=== PATIENT | male | born 1960 | race Caucasian/White ===

== ENCOUNTER 2018-05-20 23:12 | Emergency (ER) | payer SELFPAY ==
[2018-05-20 23:18] VITALS: BP 162/113; PULSE 78; RESP 20; TEMP 36.4; O2SAT 100; BMI 21.7
--- NOTE | 2018-05-21 01:26 | ED.EYEPROB ---
HPI - Eye Problem General Chief complaint: Eye Problems Stated complaint: has something in left eye History of Present Illness HPI Narrative: HPI 57-year-old male presents for evaluation of gritty left eye pain that began shortly after some sandblasting dust was actually knocked into his eye. Patient was moving equipment on a fishing boat that had sandblasting dust on it. Patient does not wear contact lenses. Patient extensively irrigators I after his injury. Denies a history of glaucoma. Denies recent eye surgery. 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 M/S/F/SocHx notable for: please see HPI; remainder reviewed with patient and in chart. ROS: Negative constitutional, eye, cardiovascular, pulmonary, GI, , MSK, skin, neurologic, psychiatric, endocrine unless noted in the HPI. Exam Gen: Pleasant, non-toxic appearing, resting in mild discomfort. Head: Normocephalic, atraumatic. Eyes: Extraocular Structures: * OS without proptosis, periorbital erythema, swelling, warmth, or tenderness. Lids without edema, erythema, swelling. Nasolacrimal duct without swelling. EOMI without pain or nystagmus. * OD without proptosis, periorbital erythema, swelling, warmth, or tenderness. Lids without edema, erythema, swelling. Nasolacrimal duct without swelling. Visual yu full to confrontation. EOMI without pain or nystagmus. Ocular Structures: OD - Visually normal. Visual acuity baseline per patient. OS * PERRLA (4 to 2 mm bilaterally) without pain on both afferent and efferent light stimulation. * EOMI without pain or nystagmus (bilaterally). * Vision: baseline per patient, yu full. * Slit lamp exam: grit visually consistent with sandblasting dust on the lateral lower eyelid margin, this washed off with proparacaine application, lid everted and no foreign bodies or areas of swelling were seen. * Mild conjunctival injection, no hemorrhage, chemosis, or discharge. No grossly visible hypopyon or hyphema. No anterior chamber cell or flare. * Patient had relief of pain with application of topical anesthetic. Fluorescein was applied with scattered minor focal update appreciated, negative Siedel's sign. * OS 11 mmHg. * pH 7 Mouth: oropharynx visually normal Nose: Nares without crusting or discharge. Neck: Neck supple Resp: Normal work of breathing without accessory muscle usage. Card: Extremities warm and well perfused. GI: Nondistended. : Deferred MSK: No visible deformities, strength and tone visually normal. Skin: Normal color with no visible lesions. Neuro: No facial asymmetry, moving all extremities without visible deficit. Heme: Deferred MDM Previous chart, nursing note, and vitals reviewed. A: 57-year-old male presents for evaluation of gritty left eye pain that began shortly after some sandblasting dust was actually knocked into his eye. DDx: corneal abrasion, corneal foreign body, keratitis sicca, corneal ulcer, corneal perforation, traumatic iritis, chemical irritation Evaluation: Exam is consistent with the history demonstrated a corneal abrasion, no foreign bodies or globe rupture were appreciated. As the patient does not wear contact lenses erythromycin ointment was prescribed, the patient was instructed to use ibuprofen for baseline analgesia with a short course of Novi for breakthrough pain prescribed. Patient was instructed to follow-up within 48 hours unless symptoms are completely resolved. Return to care precautions were provided. Impression: corneal abrasion (please reference below for remainder of encounter information) Related Data Home Medications Medication Instructions Recorded Confirmed MULTIVITAMIN (#UNI-STRESS) 1 cap PO QDAY #0 04/18/12 Previous Rx's Medication Instructions Recorded penicillin V potassium 500 mg PO QID #28 tab 11/22/16 erythromycin 1 applictn EYE-LEFT QID 5 Days 05/21/18 applictn Allergies Allergy/AdvReac Type Severity Reaction Status Date / Time AMPICILLIN Allergy Unknown GOT SICKER Uncoded 02/26/18 12:02 AND CRAZY ON IT [facility] Social History Smoking Status: Current every day smoker Exam Initial Vital Signs Initial Vital Signs: Vital Signs Temperature 97.5 F L 05/20/18 23:18 Pulse Rate 78 05/20/18 23:18 Respiratory Rate 20 05/20/18 23:18 Blood Pressure 162/113 H 05/20/18 23:18 Pulse Oximetry 100 05/20/18 23:18 Course Vital Signs - 8 hr 05/20/18 23:18 Temperature 97.5 F L Pulse Rate 78 Respiratory Rate 20 Blood Pressure 162/113 H Pulse Oximetry 100 Discharge Plan Departure Patient Disposition: Home, Self-Care Clinical Impression: Acute left eye pain Activity Restrictions/Additional Instructions: You were in seen in the [facility] Emergency Department for evaluation of eye pain. Please read and follow all of the instructions below. Please follow up with your eye doctor or primary care physician in 1-2 days for repeat evaluation. If you have any new symptoms or if you are at all concerned about your health please return immediately to the emergency department. If you do not have a primary care physician, please contact [facility], [place], [facility] at [phone], [facility] at [phone], or [facility] at [phone] to arrange follow up care. If you have health insurance, please also contact your insurer for a list of accepting providers under your policy, you may contact these providers for further health care. Your care today was limited to identifying and treating emergent medical problems only. Many people have subtle differences in their test results that require follow up with their outpatient physician(s) to correctly determine if this represents a normal variation or concerning abnormality with respect to your specific health. The care given to you today was limited to identifying and treating emergent medical problems - you need to request a copy of all of your medical records from today's visit and follow up with your outpatient physician(s) to review both today's visit and your overall health. Cornea Abrasion * A corneal abrasion is a scratch on the cornea. The cornea is the white of the eye. A corneal abrasion happens when something scratches your eye or gets stuck under your eyelid. You can also get a corneal abrasion from wearing contact lenses. * You have been prescribed erythromycin ointment, please apply 1 cm ribbon of ointment in your affected eye four times per day for the next 5 days. Your optometrist president/practice owner or information and referral director may direct you to take this for longer. * You may use artificial tears as needed for eye lubrication and comfort. However please avoid using artificial tears immediately after applying antibiotic drops or ointment to avoid washing out the antibiotic. * Follow-up with your information and referral director or optometrist president/practice owner within 24 days for a repeat evaluation. * If you wear contact lenses, please stop wearing these until your pain is all gone. After your pain is gone, please follow up with the information and referral director that prescribed the lenses to make sure they fit well. In the future, do not wear contacts that don?t fit well, wear contacts longer than you should (such as overnight), and please keep your contacts cleaned as instructed by your information and referral director or optometrist president/practice owner. Corneal abrasions can be very painful. This pain can be difficult to control but it will get better as the abrasion heals. * Take 400 mg of ibuprofen every 6 hours for pain relief. Do not take this medication if you are or allergic to ibuprofen, Motrin, Aleve, or naproxen. Return to the emergency department or promptly contact an optometrist president/practice owner if you develop any of the following: * Worsening eye pain * Headache * Eye discharge * Changes in vision * Neck stiffness, fevers, chills * Double vision * If you are otherwise concerned about your health Common symptoms of a corneal abrasion are: * Feeling like you have a speck of sand in your eye * Eye pain that is so bad you cannot work, drive, or sleep * Teary, watery eyes * Blurred vision * Being very uncomfortable looking at bright lights Erythromycin Eyedrops (Brand Names: Ilotycin; Romycin) * Please take this medication as prescribed. * Please take the medication for the full duration of the precription. * If you feel you are experiencing a side effect, please call your physician or the emergency department. Applying Erythromycin Eye Ointment: * Wash your hands well with soap and water. * Tilt your head back slightly and look upwards. * Gently drawn down the lower eye lid of your affected eye with your index finger. * Apply a thin 1 cm (approximately 1/2 inch) line of ointment in the gutter formed between your eye in your lower eyelid. * Close your eye gently and with your eye closed look in all directions to spread the ointment, you may then blink several times to help spread the ointment over your eye. * Your vision may be blurred temporarily by the ointment, this will clear up a short amount of time but do not drive a car or operate machinery until your vision has cleared. Erythromycin Side Effects: WARNING/CAUTION: Even though it may be rare, some people may have very bad and sometimes deadly side effects when taking a drug. Tell your doctor or get medical help right away if you have any of the following signs or symptoms that may be related to a very bad side effect: signs of an allergic reaction, like rash; hives; itching; red, swollen, blistered, or peeling skin with or without fever; wheezing; tightness in the chest or throat; trouble breathing or talking; unusual hoarseness; or swelling of the mouth, face, lips, tongue, or throat. Change in eyesight, eye pain, or very bad eye irritation. Ibuprofen (Brand Names: Motrin, Advil) * Take 600 mg with a glass of water every 6-8 hours as needed for pain or fever. * Do not take for more than 10 days. * This medication may cause a mildly upset stomach, if so take it with a small snack. Stop taking it if you have persistent abdominal pain, heartburn, or any stomach pain. Do not take this medication if you have known ulcers. * Do not take with Naproxen Sodium (brand name: Aleve) or other non-steroidal antiiflammatory medications that you may be prescribed (e.g. Diclofenac, Etodolac, Indomethicin) WARNING: This drug may infrequently cause serious (rarely fatal) bleeding from the stomach or intestines. Also, related drugs rarely have caused blood clots to form, resulting in heart attacks and strokes. This medication might also rarely cause similar problems. Talk to your doctor or pharmacist about the benefits and risks of treatment, as well as other possible medication choices. If you notice any of the following rare but very serious side effects, stop taking ibuprofen and seek immediate medical attention: black stools, persistent stomach/abdominal pain, vomit that looks like coffee grounds, chest pain, weakness on one side of the body, sudden vision changes, slurred speech. SIDE EFFECTS: Upset stomach, nausea, vomiting, heartburn, headache, diarrhea, constipation, drowsiness, and dizziness may occur. If any of these effects persist or worsen, notify your doctor or pharmacist promptly. If your doctor has directed you to use this medication, remember that he or she has judged that the benefit to you is greater than the risk of side effects. Many people using this medication do not have serious side effects. Tell your doctor immediately if any of these serious side effects occur: stomach pain, swelling of the hands or feet, sudden or unexplained weight gain, ringing in the ears (tinnitus). Tell your doctor immediately if any of these unlikely but serious side effects occur: vision changes, rapid or pounding heartbeat, easy bruising or bleeding, difficult/painful swallowing. Tell your doctor immediately if any of these highly unlikely but very serious side effects occur: change in amount of urine, severe headache, very stiff neck, mental/mood changes, persistent sore throat or fever. This drug may rarely cause serious (possibly fatal) liver disease. If you notice any of the following highly unlikely but very serious side effects, stop taking ibuprofen and consult your doctor or pharmacist immediately: yellowing eyes and skin, dark urine, unusual/extreme tiredness. An allergic reaction to this drug is unlikely, but seek immediate medical attention if it occurs. Symptoms of an allergic reaction include: rash, itching/swelling (especially of the face/tongue/throat), severe dizziness, trouble breathing. This is not a complete list of possible side effects. DRUG INTERACTIONS: Your healthcare professionals (e.g., doctor or pharmacist) may already be aware of any possible drug interactions and may be monitoring you for it. Do not start, stop or change the dosage of any medicine before checking with them first. This drug should not be used with the following medications because very serious interactions may occur: cidofovir, ketorolac. If you are currently using any of these medications listed above, tell your doctor or pharmacist before starting ibuprofen. Before using this medication, tell your doctor or pharmacist of all prescription and nonprescription/herbal products you may use, especially of: anti-platelet drugs (e.g., cilostazol, clopidogrel), oral bisphosphonates (e.g., alendronate), other medications for arthritis (e.g., aspirin, methotrexate), blood thinners (e.g., enoxaparin, heparin, warfarin), corticosteroids (e.g., prednisone), cyclosporine, desmopressin, high blood pressure drugs (including MARIA DOLORES inhibitors such as captopril, angiotensin II receptor antagonists such as losartan, and beta-blockers such as metoprolol), lithium, pemetrexed, water pills (diuretics such as furosemide, hydrochlorothiazide, triamterene). Check all prescription and nonprescription medicine labels carefully for other pain/fever drugs (NSAIDs such as aspirin, celecoxib, naproxen). These drugs are similar to ibuprofen, so taking one of these drugs while also taking ibuprofen may increase your risk of side effects. Consult your doctor or pharmacist for more details. However, if your doctor has prescribed low doses of aspirin to prevent heart attack or stroke (usually at dosages of 81-325 milligrams a day), you should continue to take the aspirin. Daily use of ibuprofen may decrease aspirin's ability to prevent heart attack/stroke. Talk to your doctor about using a different medication (e.g., acetaminophen) to treat pain/fever. If you must take ibuprofen, talk to your doctor about possibly taking immediate-release aspirin (not enteric-coated) while also taking the ibuprofen dose apart from your aspirin dose. Do not increase your daily dose of aspirin or change the way you take aspirin/other medications without your doctor's approval. This document does not contain all possible interactions. Therefore, before using this product, tell your doctor or pharmacist of all the products you use. Keep a list of all your medications with you, and share the list with your doctor and pharmacist. Hydrocodone/Acetaminophen (Brand Names: Novi, Vicodin) * Take as directed on the prescription for relief of pain. * This product contains acetaminophen (Tylenol) do not use it with other Acetaminophen containing medications. * This drug may cause mild nausea, if so you may take it with a small snack. * This drug will cause constipation, if you experience a decrease in bowel movements purchase Senna-S (sennasides and docusate) which is available over the counter at pharmacies and take as directed on the bottle. Call your physician if you have not had bowel movemen in two days. * This drug may cause fatigue - do not drive or engage in other hazardous activities when using this medication. * Do no drink alcohol when using this medication. * Store this drug safely, it is a high risk medication if misused. SIDE EFFECTS: Tell your doctor immediately if any of these unlikely but serious side effects occur: mental/mood changes, severe stomach/abdominal pain, difficulty urinating. Seek immediate medical attention if any of these rare but serious side effects occur: fainting, seizure, slow/shallow breathing, unusual drowsiness/difficulty waking up. Taking more than the recommended dose of acetaminophen may cause serious (possibly fatal) liver disease. Seek immediate medical attention if you have any symptoms of liver damage, including: dark urine, persistent nausea/vomiting, stomach/abdominal pain, yellowing eyes/skin. A very serious allergic reaction to this drug is rare. However, seek immediate medical attention if you notice any symptoms of a serious allergic reaction, including: rash, itching/swelling (especially of the face/tongue/throat), severe dizziness, trouble breathing. This is not a complete list of possible side effects. PRECAUTIONS: Before taking this medication, tell your doctor or pharmacist if you are allergic to it; or to other narcotics (such as morphine, codeine); or if you have any other allergies. This product may contain inactive ingredients, which can cause allergic reactions or other problems. Talk to your pharmacist for more details. Before using this medication, tell your doctor or pharmacist your medical history, especially of: brain disorders (such as head injury, tumor, seizures), breathing problems (such as asthma, sleep apnea, chronic obstructive pulmonary disease-COPD), kidney disease, liver disease, mental/mood disorders (such as confusion, depression), personal or family history of regular use/abuse of drugs/alcohol, stomach/intestinal problems (such as blockage, constipation, diarrhea due to infection, paralytic ileus), difficulty urinating (such as due to enlarged prostate). This drug may make you dizzy or drowsy. Avoid alcoholic beverages. Acetaminophen may cause liver damage. Daily use of alcohol, especially when combined with acetaminophen, may increase your risk for liver damage. Caution is advised if you have diabetes, alcohol dependence, liver disease, phenylketonuria (PKU), or any other condition that requires you to limit/avoid these substances in your diet. Ask your doctor or pharmacist about using this product safely. Older adults may be more sensitive to the effects of this drug, especially dizziness, drowsiness, urinary problems. During , this medication should be used only when clearly needed. Using it for long periods or in high doses near the expected delivery date is not recommended because of the potential for harm to the unborn baby. Discuss the risks and benefits with your doctor. Babies born to mothers who have used this medication for an extended time may have withdrawal symptoms such as irritability, abnormal/persistent crying, vomiting, or diarrhea. If you notice any of these symptoms in your , tell the doctor promptly. This medication passes into breast milk and may rarely have undesirable effects on a nursing infant. Tell the doctor immediately if your baby develops unusual sleepiness, difficulty feeding, or trouble breathing. Consult your doctor before breast-feeding. Prescriptions: New erythromycin 5 mg/gram (0.5 %) ointment 1 applictn EYE-LEFT QID 5 Days RF: 0 No Action MULTIVITAMIN (#UNI-STRESS) 1 cap PO QDAY Qty: 0 RF: 0 penicillin V potassium 500 MG tablet 500 mg PO QID Qty: 28 RF: 0
[2018-05-21] MEDS: TET,DIPH,PERTUSS(ACELL),VAC/PF 0.5 ML SYRINGE IM (01:30)
[2018-05-21 01:35] VITALS: BP 161/91; PULSE 66; RESP 16; TEMP 36.4; O2SAT 98
[2018-05-21] MEDS: PROPARACAINE 0.5% OPHTH SOL 1 DROPS EYE-LEFT (01:38)
[2018-05-21] MEDS: ERYTHROMYCIN OPHTH 1 GM OINT 1 APPLIC EYE-LEFT (01:38)
== END 2018-05-21 01:42 | disposition home or self-care (01) ==
PROVIDERS: Emergency Provider Emergency Medicine
DX: S05.02XA Injury of conjunctiva and corneal abrasion without foreign body, left eye, initial encounter (principal); W20.8XXA Other cause of strike by thrown, projected or falling object, initial encounter
CPT/HCPCS: 90471; 99283; 90715